=== PATIENT | female | born 1950 | race Caucasian/White ===

== ENCOUNTER 2022-10-13 10:29 | Outpatient (CLI) | payer BC, SELFPAY ==
[2022-10-13 12:09] LABS: Chloride* 103 mmol/L (96-114)
[2022-10-13 12:10] LABS: Potassium* 4.4 mmol/L (3.6-5.1); Sodium* 139 mmol/L (135-149)
[2022-10-13 12:12] LABS: Aspartate Amino Transferase* 76 U/L (12-35); Bilirubin Total* 1.1 mg/dL (0.1-1.5); Blood Urea Nitrogen* 18 mg/dL (7-30); Carbon Dioxide* 29 mmol/L (20-32); Cholesterol* 232 mg/dL (90-199); Creatinine* 0.6 mg/dL (0.5-1.5); Estimated Glomerular Filt Rate 97 ml/min; Glucose* 84 mg/dL (60-115); Total Protein* 7.9 g/dL (6.0-8.3)
[2022-10-13 12:13] LABS: Alanine Aminotransferase* 73 U/L (4-35); Alkaline Phosphatase* 80 U/L (40-150); Calcium* 9.6 mg/dL (8.4-10.6); HDL Cholesterol* 63 mg/dL (>=50); LDL Cholesterol Calculated 135 mg/dL (<100); Triglycerides* 171 mg/dL (40-149)
== END 2022-10-13 10:30 | disposition home or self-care (01) ==
PROVIDERS: Visit Provider Internal Medicine
DX: Z00.00 Encounter for general adult medical examination without abnormal findings (principal); Z13.6 Encounter for screening for cardiovascular disorders; Z30.09 Encounter for other general counseling and advice on contraception
CPT/HCPCS: 80053; 80061

== ENCOUNTER 2023-01-05 13:42 | Outpatient (CLI) | payer MEDICARE, SELFPAY ==
--- NOTE | 2023-01-05 14:00 | CRLHL7_ITS ---
For Patients: As a result of the Century Cures Act, medical imaging exams and procedure reports are released immediately into your electronic medical record. You may view this report before your referring provider. If you have questions, please contact your health care provider. BILATERAL SCREENING MAMMOGRAM WITH COMPUTER-AIDED DETECTION AND TOMOSYNTHESIS TECHNIQUE: CC and MLO views were obtained. These mammographic images have been obtained using full-field digital technique. These mammographic images were interpreted with the benefit of computer-aided detection. Breast tomosynthesis was used in this interpretation. COMPARISON FILM: 07/10/19, 09/27/17, 07/06/11. FINDINGS: There are scattered areas of fibroglandular density. IMPRESSION: There is no radiographic evidence for malignancy. ASSESSMENT: BI-RADS Category 1: Negative RECOMMENDATION: Routine screening mammogram in 1 year. A lay language report of this examination will be provided to the patient. OBEY DANIELS M.D. Diagnostic Radiologist [email or web address] Transcribed: 01/06/2023, 2:[address]/Dictated by: Obey Daniels MD @ 01/06/2023 9:56:00 AM (Electronically Signed)
== END 2023-01-05 13:43 | disposition home or self-care (01) ==
LOC: MAMMO 13:44
PROVIDERS: Visit Provider Internal Medicine
DX: Z12.31 Encounter for screening mammogram for malignant neoplasm of breast (principal)
CPT/HCPCS: 77063; 77067

== ENCOUNTER 2024-01-09 09:54 | Outpatient (CLI) | payer MEDICARE, SELFPAY ==
--- NOTE | 2024-01-09 10:15 | MM_ITS ---
Patient: ANSHU MELISSA Facility:?[facility] Patient ID:?[id number] Site Patient ID:?[id number] Site :?[id number] Study:?XRay-Breast Bilateral 3D W/CAD-01/09/2024 10:45:03 AM Ordering Physician:Josue Final Report: BILATERAL SCREENING MAMMOGRAM WITH COMPUTER-AIDED DETECTION AND TOMOSYNTHESIS TECHNIQUE: CC and MLO views were obtained. These mammographic images have been obtained using full-field digital technique. These mammographic images were interpreted with the benefit of computer-aided detection. Breast Tomosynthesis was used in this interpretation. COMPARISON FILM: 01/05/23, 07/10/19, 09/27/17. FINDINGS: There are scattered areas of fibroglandular density. IMPRESSION: There is no radiographic evidence for malignancy. ASSESSMENT: BI-RADS Category 1: Negative RECOMMENDATION: Routine screening mammogram in 1 year. A lay language report of this examination will be provided to the patient. Obey Winchester M.D. Diagnostic Radiologist [email or web address] DSM/sp R& Transcribed: 2:[address]/Dictated by: Obey Winchester MD @ 01/09/2024 11:42:00 AM Signed by:?Obey Winchester MD @01/09/2024 3:53:45 PM (Electronic Signature)
== END 2024-01-09 09:55 | disposition home or self-care (01) ==
LOC: MAMMO 09:55
PROVIDERS: Visit Provider Internal Medicine
DX: Z12.31 Encounter for screening mammogram for malignant neoplasm of breast (principal)
CPT/HCPCS: 77063; 77067

== ENCOUNTER 2024-11-20 08:27 | Outpatient (CLI) | payer MEDICARE, SELFPAY ==
--- NOTE | 2024-11-20 09:24 | W.ANESCHARGE ---
Anesthesia Charges Start Date/Time Anesthesia Start Date: 11/20/24 Anesthesia Start Time: 08:56 Stop Date/Time Anesthesia Stop Date: 11/20/24 Anesthesia Stop Time: 09:23 Coding CPT Codes CPT Codes: ZENY LWR INTST NDMO NOS - 52001 ([id number]) P1 - NORMAL HEALTHY PATIENT, QK - BEHAVIORAL TECHNICIAN 2-4 CNCRNT ANES PROC, QX - STRINGED INSTRUMENT ASSEMBLER SVC W/ MED DIRECTION
--- NOTE | 2024-11-20 09:46 | W.ANESCHARGE ---
Anesthesia Charges Start Date/Time Anesthesia Start Date: 11/20/24 Anesthesia Start Time: 08:56 Stop Date/Time Anesthesia Stop Date: 11/20/24 Anesthesia Stop Time: 09:23 Summary Extremes of Age - Over 70 or under 1: MDA Coding CPT Codes CPT Codes: ANES LWR INTST NDSC NOS - 62199 ([id number]) QK - SCUBA INSTRUCTOR 2-4 CNCRNT ANES PROC, QX - CHEMICAL TEST ENGINEER SVC W/ MD MED DIRECTION, P1 - NORMAL HEALTHY PATIENT Additional Codes: Summary - Extremes of Age - Over 70 or under 1: MDA ([id number])
== END 2024-11-20 08:28 | disposition home or self-care (01) ==
LOC: OP CLINIC 08:27
PROVIDERS: PCP Internal Medicine; Visit Provider Internal Medicine
DX: Z12.11 Encounter for screening for malignant neoplasm of colon (principal); D12.3 Benign neoplasm of transverse colon; K57.30 Diverticulosis of large intestine without perforation or abscess without bleeding; Z80.0 Family history of malignant neoplasm of digestive organs
CPT/HCPCS: 00811; 45380; 88305; 99100; J2704